=== PATIENT | female | born 1985 | race Caucasian/White ===

== ENCOUNTER 2020-10-30 00:42 | Inpatient (IN) | payer BC, OTHER ==
[~2020-10-30] VITALS: Ht 152.4 cm; Wt 77.1 kg
[2020-10-30 02:46] LABS: HEMOGLOBIN 12.9 gm/dl (12.3-15.3); RED BLOOD COUNT 3.79 M/UL (4.00-5.10); WHITE BLOOD COUNT 17.9 K/UL (4.5-11.0)
[2020-10-30] MEDS ORDERED: ZOLOFT25 MG PO (07:25)
[2020-10-30] MEDS ORDERED: PRENATAL VITAM1 EAC3 PO (07:25)
[2020-10-30] MEDS ORDERED: IBU600 MG PO (15:47)
[2020-10-30] MEDS ORDERED: FERROUS SULFAT325 M2 PO (15:47)
[2020-10-30] MEDS ORDERED: COLACE100 MG PO (15:47)
[2020-10-31 07:40] LABS: HEMOGLOBIN 9.6 gm/dl (12.3-15.3)
== END 2020-10-31 19:55 | disposition home or self-care (01) | DRG 768 ==
LOC: GENOP 00:42 → OB 01:48
PROVIDERS: ADMIT Obstetrics & Gynecology
PROC: 10E0XZZ Delivery of Products of Conception, External Approach (ICD-10-PCS; principal; 2020-10-30)
PROC: 10907ZC Drainage of Amniotic Fluid, Therapeutic from Products of Conception, Via Natural or Artificial Opening (ICD-10-PCS; 2020-10-30)
PROC: 4A1HXCZ Monitoring of Products of Conception, Cardiac Rate, External Approach (ICD-10-PCS; 2020-10-30)
PROC: 0W3R7ZZ Control Bleeding in Genitourinary Tract, Via Natural or Artificial Opening (ICD-10-PCS; 2020-10-30)
DX: O99.344 Other mental disorders complicating childbirth (principal); Z37.0 Single live birth; O72.1 Other immediate postpartum hemorrhage; Z3A.40 40 weeks gestation of pregnancy; F43.10 Post-traumatic stress disorder, unspecified; F41.9 Anxiety disorder, unspecified; Z20.822 Contact with and (suspected) exposure to COVID-19; O70.0 First degree perineal laceration during delivery
CPT/HCPCS: 51702; 81001; 82800; 83518; 85014; 85018; 85025; 86850; 86900; 86901; J2210; J3010; J7120; U0002